=== PATIENT | male | born 1975 ===

== ENCOUNTER 2016-11-18 22:44 | Emergency (ER) | payer OTHER ==
[~2016-11-18] VITALS: Ht 167.6 cm; Wt 96.0 kg
[2016-11-18 23:28] VITALS: Ht 167.6 cm; Wt 96.0 kg
[2016-11-19] MEDS ORDERED: IBUPROFEN 200 MG TAB PO ONE (00:30)
[2016-11-19] MEDS ORDERED: METHYLPREDNISOLONE 125 MG INJ IM ONE (00:30)
[2016-11-19 02:00] VITALS: BP 124/86; PULSE 67; RESP 16; TEMP 98.1
--- NOTE | 2016-11-19 02:04 | ERD ---
ER Documentation Chief Complaint Date/Time DATE: 11/19/16 TIME: 01:58 Chief Complaint BILATERAL EAR PAIN X 2 WEEKS, FEELS DRAINAGE FROM EARS, FEVER LAST NIGHT HPI This pleasant 41-year-old male patient presents to the emergency department with or otalgia, patient reports bilateral ear pain, right greater than left, patient states symptoms started acutely 2-3 days ago. He has been using over- the-counter medication with little relief of pain. Patient reports that he has had a history of cellulitis secondary to plant dermatitis, was treated with doxycycline approximately 3 weeks ago. He also was on a short course of steroids at that time. Patient reports today's pain is 7/10 on pain scale, he denies any change in hearing, fever, or dizziness. ROS All systems reviewed and are negative except as per history of present illness. PMhx/Soc Medical and Surgical Hx: pt denies Medical Hx, pt denies Surgical Hx Hx Alcohol Use: No Hx Substance Use: No Hx Tobacco Use: No Smoking Status: Never smoker Physical Exam Vitals Vital Signs Date Time Temp Pulse Resp B/P Pulse Ox O2 Delivery O2 Flow Rate FiO2 11/18/16 23:28 97.8 79 17 142/81 96 Vitals stable, triage notes reviewed Physical Exam Const: No acute distress Head: Atraumatic Eyes: Normal Conjunctiva, PERRLA, EOMI ENT: Bilateral auditory canals are narrowing, erythemic, tender when tragus and pinna manipulated, tympanic membrane is dull, flattened, no mastoid tendernessnasal mucosa moist, pharynx pink, uvula rises and falls with pronation , Neck: Full range of motion..~ No meningismus. Resp: Cardio: Abd: Skin: Back: Ext: Neur: Awake and alert Psych: Normal Mood and Affect Results 24 hrs Current Medications Medications (Trade) Dose Ordered Sig/Kayleigh Route PRN Reason Start Time Stop Time Status Last Admin Dose Admin Methylprednisolone Sodium Succinate (Solu-Medrol) 60 mg ONCE ONCE IM 11/19/16 00:30 11/19/16 00:31 DC 11/19/16 00:42 Ibuprofen (Motrin) 400 mg ONCE ONCE PO 11/19/16 00:30 11/19/16 00:31 DC 11/19/16 00:42 Procedures/MDM This pleasant 41-year-old male patient presents to the emergency department for bilateral otalgia, no hearing change, no mastoid tenderness, otitis media, mastoiditis, or tympanic mass is not suspected. Physical exam and history support otitis externa, patient received 60 mg of Solu-Medrol intramuscularly in emergency department, and Motrin for pain reassessed after 90 minutes patient reports improvement of symptoms. Patient will be discharged home with Ciprodex and 4 days of prednisone 40 daily, Motrin for pain. Return to emergency department if symptoms fail to improve as anticipated, discharge from the ear, change in hearing, or fever not responding to medication. I feel the patient is stable for discharge at this time outpatient management by primary care physician. I have discussed results, examination findings, the treatment plan with the patient and family present prior to discharge. Indications for emergent reevaluation, side effects of medication were also discussed. All questions were answered. Patient verbalizes understanding and agrees with plan of care. Departure Diagnosis: Primary Impression: Otitis externa Otitis externa type: unspecified type Laterality: bilateral Chronicity: acute Qualified Code: H60.503 - Acute otitis externa of both ears, unspecified type Condition: Good Patient Instructions: External Ear Infection (Adult) Referrals: [facility] Additional Instructions: Thank you for for coming to [facility] for your care today. Please ask your nurse or provider if you have questions about your care today and do not leave until all your questions have been answered. Please use any medications given as directed and follow-up with your doctor (or the doctor you were referred to) in the next 2-3 days. If you do not have a primary care doctor you may follow up at the [facility] (listed below). You may also use motrin and tylenol as needed for fever and/or pain unless instructed otherwise by your provider or nurse. Indications for more urgent follow-up have been discussed, but you may return to the Emergency Department at ANY time for any worrisome or worsening symptoms. If you have abdominal pain, please know that no test or exam you received is perfect and you should follow up within 8 hours for continued pain. If you had any imaging studies today, such as an X-Ray or CT Scan, these studies will be reviewed later by a radiologist. You will be called if there are important findings that were not identified today, so make sure the contact information you provided at registration is correct. If you received any narcotic pain control medicine today, such as Vicodin, Morphine or Dilaudid, your coordination and judgment may be affected for a number of hours. Please do not drive or operate heavy machinery, and you may want someone to assist you at home. If you were given a prescription for narcotic medication, be aware that it is very addictive- use sparingly and only if necessary. ISHAN SAGE Nov 19, 2016 02:04
[2016-11-19] MEDS ORDERED: CIPR7.5D4 BOTH EARS (02:05)
== END 2016-11-19 02:14 | disposition home or self-care (01) ==
LOC: FTE 22:44
DX: H60.503 Unspecified acute noninfective otitis externa, bilateral (principal)
CPT/HCPCS: 96372; J2930; Z7502; Z7610